=== PATIENT | female | born 1975 | race Two or more races ===

== ENCOUNTER → 2019-05-18 09:43 | Outpatient (CLI) | payer OTHER ==
[~2019-05-18 09:43] MED LIST: HYDROCODON-ACE1 EA10 PO; KLONOPIN1 MG PO; LAMICTAL200 M1 PO; OMEPRAZOLE20 M1 PO; REGLAN10 MG PO
[2019-05-20 14:34] VITALS: BMI 34.0
== END | disposition home or self-care (01) ==
LOC: D.OPS 09:43
PROVIDERS: ATTEND Surgery
DX: K21.9 Gastro-esophageal reflux disease without esophagitis (principal)

== ENCOUNTER 2019-05-20 08:24 | Day surgery (SDC) | payer OTHER ==
[~2019-05-20] VITALS: Ht 175.3 cm; Wt 104.5 kg
[2019-05-20] VITALS (14 sets, daily range): BP systolic 95–142; BP diastolic 58–77; Ht 175.3 cm; Wt 104.5 kg
[~2019-05-20 08:24] MED LIST changes: -HYDROCODON-ACE1 EA10 PO; -REGLAN10 MG PO
[2019-05-20 08:54] LABS: BASOPHILS 0.5 % (0-2); EOSINOPHILS 2.4 % (0-7); HEMATOCRIT 33.6 % (36.0-48.0); HEMOGLOBIN 10.1 g/dL (12-16); IMMATURE GRANULOCYTES 0.2 % (0-5); MCH 22.9 pg (26.0-34.0); MCHC 30.1 g/dL (31.0-37.0); MEAN PLATELET VOLUME 8.6 fL (7.4-10.4); MONOCYTES 7.2 % (2-11); NEUTROPHILS 65.7 % (40-80); PLATELET COUNT 347 10x3/uL (130-400); RBC 4.42 10x6/uL (4.00-5.40); RDW 18.1 % (11.5-14.5); WBC 8.3 10x3/uL (4.8-10.8)
[2019-05-20 09:10] LABS: CALC OSMOLALITY 278 mosm/kg (275-300); CALCIUM 8.5 mg/dL (8.5-10.1); CARBON DIOXIDE 26.7 mmol/L (21.0-32.0); CHLORIDE - SERUM 107 mmol/L (98-107); CREATININE - SERUM 0.7 mg/dL (0.6-1.3); GLUCOSE 95 mg/dL (74-106); POTASSIUM - SERUM 3.9 mmol/L (3.5-5.1); SODIUM 140 mmol/L (136-145); UREA NITROGEN 12 mg/dL (7-18); eGFR NON AFRICAN AMERICAN > 90 mL/min (90-120)
[2019-05-20] MEDS ORDERED: OMEPRAZOLE20 M1 PO (14:36)
--- NOTE | 2019-05-20 17:56 | NUR ---
I have reviewed this patient and I concur with the Shift Assessment completed by the Licensed Practical Nurse today this shift.
[2019-05-21] VITALS: BP 96/58
[2019-05-21 04:00] VITALS: BP 100/63
--- NOTE | 2019-05-21 04:16 | NUR ---
ASSESSED AT THE BEGINNING OF THE SHIFT. PT IS ALERT AND ORIENTED, ABLE TO VERBALIZE NEEDS. HER MOM HAS STAYED FOR THE NIGHT. SHE IS ABLE TO MOVE WITH ASSIST AND GET COMFORTABLE. THERE IS A CRM ARCHITECT FOR PAIN CONTROL AND SHE IS USING IT. WE HAVE ASSISTED HER WITH CHANGING HER PAD AND UNDERWARE DUE TO BEING ON HER PERIOD. LAP SITES ALL HAVE BANDAIDS AND NO DRAINING NOTED.
--- NOTE | 2019-05-21 07:15 | NUR ---
REC'D IN BED AWAKE AND ALERT. RESP EVEN AND UNLABORED WITH NO DISTRESS NOTED. CAN EXPRESS NEEDS AND WANTS. NO C/O NOTED OR VOICED. ASSESSMENT COMPLETED. C/L IN REACH AT BEDSIDE.
[2019-05-21 07:31] LABS: CALC OSMOLALITY 272 mosm/kg (275-300); CALCIUM 8.4 mg/dL (8.5-10.1); CARBON DIOXIDE 24.6 mmol/L (21.0-32.0); CHLORIDE - SERUM 103 mmol/L (98-107); CREATININE - SERUM 0.6 mg/dL (0.6-1.3); GLUCOSE 98 mg/dL (74-106); POTASSIUM - SERUM 3.6 mmol/L (3.5-5.1); SODIUM 137 mmol/L (136-145); UREA NITROGEN 9 mg/dL (7-18); eGFR NON AFRICAN AMERICAN > 90 mL/min (90-120)
[2019-05-21 08:06] LABS: HEMATOCRIT 30.7 % (36.0-48.0); HEMOGLOBIN 9.8 g/dL (12-16); LYMPHOCYTES 10.2 % (15-50); MCH 24.1 pg (26.0-34.0); MCHC 31.9 g/dL (31.0-37.0); MCV 75.4 fL (80.0-100.0); MEAN PLATELET VOLUME 9.2 fL (7.4-10.4); NEUTROPHILS 83.9 % (40-80); PLATELET COUNT 353 10x3/uL (130-400); RBC 4.07 10x6/uL (4.00-5.40); RDW 17.6 % (11.5-14.5)
[2019-05-21 08:08] LABS: WBC 13.6 10x3/uL (4.8-10.8)
--- NOTE | 2019-05-21 08:29 | NUR ---
JEAN BAPTISTE CATH DC AT THIS TIME. C/L IN REACH AT BEDSIDE.
[2019-05-21 08:30] VITALS: BP 108/68
[2019-05-21 12:53] VITALS: BP 134/85
[2019-05-21] MEDS ORDERED: HYDROCODON-ACE1 EA10 PO (13:05)
[2019-05-21] MEDS ORDERED: REGLAN10 MG PO (13:05)
--- NOTE | 2019-05-21 14:08 | NUR ---
IV REMOVED FROM LEFT HAND WITH NO REDNESS OR EDEMA AT SITE. PAIN TOLERABLE WITH PO PAIN MEDICAIONS. ENCOURAGED PATIENT TO AMBULATE IN [place].
--- NOTE | 2019-05-21 16:48 | NUR ---
DISCHARGE INSTRUCTION AND EDUCATION GIVEN TO PATIENT WITH UNDERSTANDING VOICED. PATIENT TAKEN BY WHEELCHAIR TO PRIVATE CAR.
--- NOTE | 2019-06-01 13:37 | OP ---
PATIENT NAME: CHIKI AGUILAR MEDICAL RECORD: [id number] :77 LOCATION:[facility] ADMISSION DATE: SURGEON: PHILIPPE GOMES MD DATE OF OPERATION: 05/20/2019 PREOPERATIVE DIAGNOSES: 1. Hiatal hernia. 2. Gastroesophageal reflux disease. 3. Anemia. POSTOPERATIVE DIAGNOSES: 1. Hiatal hernia. 2. Gastroesophageal reflux disease. 3. Anemia. PROCEDURE: Laparoscopic hiatal hernia repair with Toupet fundoplication. SURGEON: Philippe Gomes MD REPORT OF PROCEDURE: The patient's abdomen was prepped and draped in sterile fashion. A Veress needle was inserted in the left upper quadrant and the abdomen was insufflated. An 11-mm Visiport trocar was inserted in the midline just above the umbilicus. The Veress needle could be seen and there was no evidence of any injury to bowel or surrounding structures. An 11-mm trocar was placed in the left subcostal region, a 5-mm trocar was placed in the epigastrium, a 5-mm trocar was placed in the right lateral subcostal region, and a 5-mm trocar was placed in the left lateral abdomen. The patient's liver was elevated and we could see the large hiatal hernia at this point. We could pull down on the hiatal hernia and pull it out of the chest, but they would immediately fall back up into the chest. We began taking down our dissection of the lesser omentum using Harmonic scalpel. We continued this dissection all the way up to the right side of the right ana. We scored the peritoneum of the right ana and entered the thoracic cavity, taking down the hernia sac. As we took this hernia sac down, we were able to advance anteriorly and posteriorly as far as possible and up into the chest. We then came to the greater curvature of the stomach and took down the short gastrics on the upper third of the stomach using a Harmonic scalpel. We continued this dissection to the left side of the right ana and again scored the peritoneum and entered the thoracic cavity, taking down the hernia sac. Once we were able to do this, we were able to excise the hernia sac off of the anterior aspect of the stomach along with a fat pad. We could see the GE junction and this would easily rest in the abdominal cavity with about 1-2 cm of esophagus without any tension. We then reapproximated the diaphragmatic hiatus posteriorly using interrupted 0 Polydeks times 3 with good approximation of the tissue. We then performed a 270-degree posterior wrap of the fundus of the stomach around the distal aspect of the esophagus. This was done with interrupted 0 Polydeks times 6. The wrap appeared to be in good position with no sign of any bleeding. We then irrigated out the abdomen thoroughly with normal saline. The liver retractor was removed. The 11-mm trocar site fascias were closed with interrupted 0 Vicryls using a Colt-Margie suture passer device. The ports and insufflation were then removed. The skin incisions were infused with a total of 10 mL of 0.25% Marcaine with epinephrine and then closed with subcutaneous 5-0 Monocryl. COMPLICATIONS: None. OPERATIVE REPORT [id number] LAURENCHIKI Dominique CONDITION: Stable. ANESTHESIA: General endotracheal and local. BLOOD LOSS: Minimal. TRANSINT:[id number] Voice Confirmation ID: [id number] DOCUMENT ID: [id number] cc: Indu Casas APN [id number] PHILIPPE GOMES MD at 1337 CC: ANDRÉS CASAS and LILIAN ANTONIO DO [id number] DICTATION DATE: 05/20/19 1301 [facility]ELANGEUR OPERATOR: 05/20/19 1359 [facility] 05/21/19 [id number] [place] [address]
== END 2019-05-21 16:49 | disposition home or self-care (01) ==
LOC: D.OPS 08:24 → D.MS 08:24 → D.PAN 11:00 → D.OPS 11:00 → D.MS 13:40 → D.OPS 05-21 16:49
PROVIDERS: ATTEND Surgery
DX: K44.9 Diaphragmatic hernia without obstruction or gangrene (principal); K21.9 Gastro-esophageal reflux disease without esophagitis; D50.0 Iron deficiency anemia secondary to blood loss (chronic)